=== PATIENT | female | born 2000 | race Caucasian/White ===

== ENCOUNTER 2024-02-05 16:42 | Emergency (ER) | payer OTHER, SELFPAY ==
[2024-02-05 16:46] VITALS: BP 123/75
--- NOTE | 2024-02-05 16:51 | ED.GENMED ---
ED Provider Triage
<García Arrington PA-C - Last Filed: 02/05/24 16:52>
-
Patient seen by provider in Triage?: Seen in Triage
Attestation: A medical screening examination has been initiated by a qualified medical provider. Based on the assessment performed at this time, it has been determined that an emergent medical condition may exist and the patient has been informed
that further medical evaluation and possible additional diagnostic testing may be needed.
HPI: 23-year-old female presenting to the ER at request of primary care provider after testing positive for COVID last night, symptomatic for the last 4 days. Patient notes bilateral rib discomfort and a slight cough but otherwise feels well. She
is immunocompetent, low-grade fevers but otherwise feels okay. Discussed risk first benefit of chest x-ray. Patient ultimately prefers to obtain the chest x-ray. Anticipate discharge home with supportive care following
GENERAL: Alert , in no apparent distress
EYE: No visual abnormalities.
NECK: Trachea midline
ENT: No visible abnormalities.
LUNGS: No acute respiratory distress
NEUROLOGICAL: Alert and oriented
SKIN: Skin intact. No visible changes.
MUSCULOSKELETAL: Moving extremities normally
PSYCH: Normal and appropriate interaction.
This is a medical evaluation conducted in person to initiate diagnostic evaluation and provide initial therapeutics. Please see further documentation by the treating clinician.
History of Present Illness
<García Arrington PA-C - Last Filed: 02/05/24 16:52>
General
Chief Complaint: Cold/Flu/URI Symptoms
Time Seen by Provider: 02/05/24 17:17
<Pamella Whitfield PA-C - Last Filed: 02/05/24 23:03>
General
Source: patient
Exam Limitations: none
Nursing documentation reviewed up to this point in time: agreed with
History of Present Illness
History of Present Illness:
Patient is a 23-year-old female presenting to the emergency department with lower chest discomfort. Patient states that she is COVID-positive and became symptomatic last Friday night. She reports sore throat, body aches, fevers, shortness of
breath. She denies any cough. She states that she did test positive officially at home yesterday. Patient states that she woke up today she had a burning discomfort across her bilateral lower chest. This is not pleuritic or exertional in nature.
Patient did contact her primary care recommended she be seen in the emergency department to rule out a pneumonia. Patient denies any hemoptysis. No pain or swelling in her lower legs.
Patient's younger sister is currently at home with a pneumonia.
Past History
<García Arrington PA-C - Last Filed: 02/05/24 16:52>
Past History
ED Past Medical History: Psychiatric (ADHD, PTSD, anxiety/depression.) and Other (Migraine headaches)
ED Past Surgical History: None
Social History
Tobacco: Non-smoker
Alcohol: None
Personal: Single
Living: with family
Employment: Student
Family History
Family History: Other (Noncontributory)
Review of Systems
<Pamella Whitfield PA-C - Last Filed: 02/05/24 23:03>
Review of Systems
Allergies reviewed?: Yes
All Other Systems: ROS reviewed and negative except as documented in HPI and ROS
Phy Exam
<Pamella Whitfield PA-C - Last Filed: 02/05/24 23:03>
Physical Exam
Physical Exam:
Vitals: Patient's vital signs are stable afebrile. Not hypoxic
General: Patient is well appearing, no acute distress
Skin: Warm and dry, no rashes or lesions
Head: Normocephalic, atraumatic
Eyes: Sclera nonicteric. EOMs intact. No nystagmus.
Throat: Protecting airway
Neck: Normal ROM, no cervical spine tenderness, no meningismus
Cardiac: Regular rate and rhythm, no murmurs. No reproducible chest wall tenderness. No rash or ecchymoses.
Pulm: Normal respiratory effort, no wheezes, rales, rhonchi heard on exam. Not hypoxic. O2 98 on room air
Abdomen: No abdominal tenderness.
Extremities: No evidence of cyanosis or edema
Neuro: AAOx3. CN II-XII intact. No focal neurologic deficits.
Psychiatric: Normal affect.
Course
<García Arrington PA-C - Last Filed: 02/05/24 16:52>
Orders/Labs/Results
Orders:
Orders
02/05/24 16:48
CR Chest - 2 Views Urgent
Comment:
Reason For Exam: covid, lower rib pain bilateral
Vital Signs
Initial and Last Documented VS:
Initial Vital Signs
Temp Pulse Resp BP Pulse Ox
98.2 F 71 18 123/75 98
02/05/24 16:46 02/05/24 16:46 02/05/24 16:46 02/05/24 16:46 02/05/24 16:46
Last Documented Vital Signs
Temp Pulse Resp BP Pulse Ox
98.2 F 73 18 113/77 98
02/05/24 16:46 02/05/24 18:31 02/05/24 18:31 02/05/24 18:31 02/05/24 18:31
<Pamella Whitfield PA-C - Last Filed: 02/05/24 23:03>
Orders/Labs/Results
Orders:
Orders
02/05/24 16:48
CR Chest - 2 Views Urgent
Comment:
Reason For Exam: covid, lower rib pain bilateral
Vital Signs
Initial and Last Documented VS:
Initial Vital Signs
Temp Pulse Resp BP Pulse Ox
98.2 F 71 18 123/75 98
02/05/24 16:46 02/05/24 16:46 02/05/24 16:46 02/05/24 16:46 02/05/24 16:46
Last Documented Vital Signs
Temp Pulse Resp BP Pulse Ox
98.2 F 73 18 113/77 98
02/05/24 16:46 02/05/24 18:31 02/05/24 18:31 02/05/24 18:31 02/05/24 18:31
<Eyal Caldwell DO - Last Filed: 02/05/24 20:39>
Orders/Labs/Results
Orders:
Orders
02/05/24 16:48
CR Chest - 2 Views Urgent
Comment:
Reason For Exam: covid, lower rib pain bilateral
Vital Signs
Initial and Last Documented VS:
Initial Vital Signs
Temp Pulse Resp BP Pulse Ox
98.2 F 71 18 123/75 98
02/05/24 16:46 02/05/24 16:46 02/05/24 16:46 02/05/24 16:46 02/05/24 16:46
Last Documented Vital Signs
Temp Pulse Resp BP Pulse Ox
98.2 F 73 18 113/77 98
02/05/24 16:46 02/05/24 18:31 02/05/24 18:31 02/05/24 18:31 02/05/24 18:31
<Pamella Whitfield PA-C - Last Filed: 02/05/24 23:03>
MDM/Problems Addressed
Differential Diagnosis Includes:
Limited to: COVID, pneumonia, bronchitis, muscle strain, etc.
MDM/Problems Addressed:
23-year-old female with lower chest discomfort after testing positive for COVID. Mild shortness of breath. No significant cough. No significant fever. Patient's vital signs are stable on arrival to emergency department as she is afebrile.
Patient is not hypoxic or tachypneic. On exam�patient is very well-appearing, no apparent distress. Heart regular rate and rhythm. Lungs are clear bilaterally. She has no reproducible chest wall tenderness. No clinical evidence of DVT on exam.
A chest x-ray was obtained which shows no evidence of pneumonia. Patient is overall well-appearing. Do not suspect PE. Suspect likely viral COVID infection although no evidence of pneumonia today. Possible she has underlying costochondritis.
Patient is not tachypneic, tachycardic and has good pulse ox. patient otherwise stable for discharge with primary care follow-up. Recommended supportive care.
Chronic conditions affecting care:
N/A
Acute Exacerbation and/or Progression of Chronic Illness:
N/A
<Pamella Whitfield PA-C - Last Filed: 02/05/24 23:03>
*Radiology
Radiology exam reviewed: preliminary read by ED provider (No acute disease, no pneumonia)
*Pulse Oximetry
Patient hypoxic: no
*EKG
Interpreted by ED Provider?: NA
*Barrel Loader Interpretation
Rate: Barrel Loader- N/A
*Critical Care Note
Total Time (30-74mins, 75-104mins- exclusive of procedures): Not Applicable
ED Attending Note
<García Arrington PA-C - Last Filed: 02/05/24 16:52>
-
Portions of this chart may have been created with voice recognition software.� Occasional wrong word or��sound alike� substitutions may have occurred due to the inherent limitations of voice recognition software.
<Eyal Caldwell DO - Last Filed: 02/05/24 20:39>
ED Attending Note
Patient seen and examined by attending physician: Yes
I performed the substantive portion of visit, reviewed & personally made and approve the management plan that is documented in note by myself or MONCHO.: Yes
ED Attending Note:
Patient is a 23-year-old female who is COVID-positive by test yesterday and started with symptoms 3 days ago and then felt good and then felt worse yesterday. Patient tested negative for COVID 3 days ago. Patient presents with feeling of breath
and lower chest pain. Patient went to her doctor referred her to urgent care who then sent her to the emergency department. Patient admits to fatigue but no real nasal congestion, sore throat. Patient has not really had any fever or chills.
Patient has been coughing and states she feels short of breath. Patient admits to mildly diminished appetite but no GI or symptoms. Patient denies any leg pain or swelling. Patient on physical exam does not appear to be in any distress. Lungs
are clear heart is regular without tachycardia. Chest x-ray reviewed. Patient is nontachycardic and has a good pulse ox. Spoke to the patient about Paxlovid and we decided not to use it. Patient appears to have COVID but no pneumonia. Patient
will be discharged.
Discharge Plan
Departure
Patient Disposition: Home (Routine Discharge)
Date of Disposition: 02/05/24
Time of Disposition: 18:19
Patient with high blood pressure during this ER visit?: No
Condition: Fair
Covid-19: Suspected COVID-19
Discharge Problem:
COVID-19
Instructions: COVID-19 ED, Coronavirus Home Quarantine
Prescriptions:
No Action
fluoxetine [Prozac] 20 mg Capsule
20 mg PO DAILY
Referrals:
Kaitlin Macias CRNP [Family Provider] - Follow up in 5-7 days
Stand Alone Forms: Return to Work
Activity Restrictions/Additional Instructions:
Tylenol 650 mg to 1000 mg or ibuprofen 600 mg every 6 hours for fevers as well as aches and pains. 1 baby aspirin a day. Any issues with shortness of breath please return.
Interventions
Interventions:
*Risk Screen - Suicide Last Done: 02/05/24 16:52
*General Assessment Last Done: 02/05/24 16:52
*Neglect/Abuse Screening Last Done: 02/05/24 16:52
*Nursing Disposition Last Done: 02/05/24 18:32
ED- Pulmonary Assessment Last Done: 02/05/24 18:30
Discharge Date and Time
Discharge Date/Time: 02/05/24 18:32
Print Language: SPANISH
[2024-02-05 18:31] VITALS: BP 113/77
== END 2024-02-05 18:32 | disposition home or self-care (01) ==
LOC: EMR 16:42
PROVIDERS: EMERGENCY PHYSICIAN Emergency Medicine; FAMILY PHYSICIAN Nurse Practitioner Adult Health
DX: U07.1 COVID-19 (principal); F41.8 Other specified anxiety disorders; F43.10 Post-traumatic stress disorder, unspecified
CPT/HCPCS: 99283; 71046